=== PATIENT | male | born 1955 | race Caucasian/White ===

== ENCOUNTER 2017-04-18 23:19 | Emergency (ER) | payer OTHER ==
[~2017-04-18] VITALS: Ht 188 cm; Wt 136.1 kg
[2017-04-18] MEDS ORDERED: HUMALOG100 UNIT/2 (23:27)
[2017-04-18] MEDS ORDERED: TRESIBA FL100 UNIT/1 (23:27)
[2017-04-18] MEDS ORDERED: LOPID600 MG PO (23:28)
[2017-04-18] MEDS ORDERED: PREDNISONE 10 M10 MG PO (23:28)
[2017-04-18] MEDS ORDERED: JANUMET 50-5001 EACH PO (23:28)
[2017-04-18] MEDS ORDERED: FLORINEF ACETA0.1 MG PO (23:28)
[2017-04-18] MEDS ORDERED: SIMVASTATIN40 MG PO (23:29)
[2017-04-18] MEDS ORDERED: CELEXA20 MG PO (23:29)
[2017-04-18] MEDS ORDERED: CARVEDILOL6.25 MG (23:29)
[2017-04-18] MEDS ORDERED: ALLOPURINOL 10100 M1 PO (23:29)
[2017-04-18] MEDS ORDERED: DETROL2 MG PO (23:29)
[2017-04-18] MEDS ORDERED: OMEPRAZOLE 20 M20 M1 PO (23:30)
[2017-04-18] MEDS ORDERED: VITAMINC500 PO (23:30)
[2017-04-19 01:08] VITALS: BP 161/77
== END 2017-04-19 01:25 | disposition home or self-care (01) ==
LOC: M.ERS 23:19
DX: T38.3X1A Poisoning by insulin and oral hypoglycemic [antidiabetic] drugs, accidental (unintentional), initial encounter (principal); E11.8 Type 2 diabetes mellitus with unspecified complications; E78.00 Pure hypercholesterolemia, unspecified; K21.9 Gastro-esophageal reflux disease without esophagitis; M10.9 Gout, unspecified; E27.1 Primary adrenocortical insufficiency; Z88.8 Allergy status to other drugs, medicaments and biological substances; Z79.4 Long term (current) use of insulin; Y92.89 Other specified places as the place of occurrence of the external cause

== ENCOUNTER 2018-05-29 17:15 | Emergency (ER) | payer OTHER ==
[~2018-05-29] VITALS: Ht 188 cm; Wt 136.1 kg
[~2018-05-29 17:15] MED LIST: ALLOPURINOL 10100 M1 PO; CARVEDILOL6.25 MG; CELEXA20 MG PO; DETROL2 MG PO; FLORINEF ACETA0.1 MG PO; HUMALOG100 UNIT/2; JANUMET 50-5001 EACH PO; LOPID600 MG PO; OMEPRAZOLE 20 M20 M1 PO; PREDNISONE 10 M10 MG PO; SIMVASTATIN40 MG PO; TRESIBA FL100 UNIT/1; VITAMINC500 PO
[2018-05-29] MEDS ORDERED: ROBAXIN 750 MG750 M1 PO (18:31)
[2018-05-29] MEDS ORDERED: MEDROLDOSEPACK PO (18:31)
[2018-05-29] MEDS ORDERED: NORCO 5-325 TA1 EACH PO (18:31)
[2018-05-29 18:44] VITALS: BP 132/71
== END 2018-05-29 18:44 | disposition home or self-care (01) ==
LOC: M.ERS 17:15
DX: S39.012A Strain of muscle, fascia and tendon of lower back, initial encounter (principal); E11.9 Type 2 diabetes mellitus without complications; E78.00 Pure hypercholesterolemia, unspecified; K21.9 Gastro-esophageal reflux disease without esophagitis; M10.9 Gout, unspecified; Z79.4 Long term (current) use of insulin; Z88.8 Allergy status to other drugs, medicaments and biological substances; X50.9XXA Other and unspecified overexertion or strenuous movements or postures, initial encounter; Y93.89 Activity, other specified; Y92.89 Other specified places as the place of occurrence of the external cause; Y99.8 Other external cause status